=== PATIENT | female | born 1980 | race Caucasian/White ===

== ENCOUNTER 2017-04-21 10:15 | Emergency (ER) | payer SELFPAY ==
[~2017-04-21] VITALS: Ht 152.4 cm; Wt 77.3 kg
[~2017-04-21 10:15] MED LIST: FLEXERIL10 MG PO; LORTAB 5/500 501 TAB PO; NAPROSYN500 MG PO; NO HOME MEDICATIONS; PREDNISONE20 MG PO; PROVERA10 MG PO; TUSS PO; VICODIN 5/5001 UDTAB PO; ZITHROMAX Z PA250 MG PO
[2017-04-21 10:42] VITALS: TEMP 98.8
[2017-04-21] MEDS ORDERED: SPRINTEC 35 MCG1 TAB PO (10:47)
[2017-04-21 11:39] LABS: MEAN CELL VOLUME 83 fl (80.0-100.0); MEAN CORPUSCULAR HGB CONC 33 g/dl (33.0-37.0); MEAN PLATELET VOLUME 9.3 fl (7.4-10.4); PLATELET COUNT 274 K/mm3 (130-400); REDCELL DISTRIBUTION WIDTH-CV 14.1 % (11.5-14.5); WHITE BLOOD COUNT 6.8 K/mm3 (4.8-10.8)
[2017-04-21 11:41] LABS: HEMOGLOBIN 11.5 g/dl (12.5-16.0); MEAN CORPUSCULAR HEMOGLOBIN 27 pg (27.0-31.0)
[2017-04-21 14:54] VITALS: BP 148/90; PULSE 84
== END 2017-04-21 14:55 | disposition home or self-care (01) ==
LOC: COL.ER 10:15
PROVIDERS: Physician Assistant Medical
DX: N92.0 Excessive and frequent menstruation with regular cycle (principal)

== ENCOUNTER 2017-05-19 05:29 | Day surgery (SDC) | payer OTHER ==
[~2017-05-19] VITALS: Ht 152.4 cm; Wt 72.6 kg
[2017-05-19] VITALS (7 sets, daily range): BP systolic 117–168; BP diastolic 65–84; PULSE 86–106; TEMP 97.8–98.5
[~2017-05-19 05:29] MED LIST changes: +SPRINTEC 35 MCG1 TAB PO
[2017-05-19] MEDS ORDERED: IBU800 M1 PO (08:56)
[2017-05-19] MEDS ORDERED: PERCOCET 325 MG1 TA2 PO (08:56)
== END 2017-05-19 15:50 | disposition home or self-care (01) ==
LOC: SDCO 05:29 → OB 09:20 → SDCO 15:50
DX: N92.0 Excessive and frequent menstruation with regular cycle (principal); N94.6 Dysmenorrhea, unspecified; N84.0 Polyp of corpus uteri; D64.9 Anemia, unspecified; D25.9 Leiomyoma of uterus, unspecified
CPT/HCPCS: OP; J1885; J2405; J2704; J3010; J7120; Q9968